=== PATIENT | female | born 1975 | race Two or more races ===

== ENCOUNTER 2020-06-25 17:54 | Inpatient (IN) | payer OTHER ==
[~2020-06-25] VITALS: Ht 165.1 cm; Wt 78.1 kg
[~2020-06-25 17:54] MED LIST: HYDROCODON-ACE1 EA15 ORAL; IBUPROFEN600 MG ORAL; NITROFURANTOIN100 M2 ORAL; PHENAZOPYRIDIN100 MG ORAL; TRAMADOL HCL50 MG ORAL
[2020-06-25 18:18] VITALS: BP 144/86
[2020-06-25] MEDS ORDERED: Acetaminophen 500mg (ES) tab ORAL ONE (18:30)
[2020-06-25] MEDS ORDERED: Omnipaque-300 100ml vial INJ PRN ×2 (18:30→22:00)
--- NOTE | 2020-06-25 18:31 | Emergency Room Report ---
History of Present Illness General Chief Complaint: Fever Source: Patient Present Illness HPI Disclaimer: Please note that this report is being documented using [employer] technology. This can lead to erroneous entry secondary to incorrect interpretation by the dictating instrument. HPI: 44-year-old female no medical history presents with fever and left-sided abdominal pain. She states she was seen at urgent care 2 weeks ago for the same. Found to have a UTI and be anemic and was prescribed p.o. Cipro. She finished her ciprofloxacin however her symptoms have continued. She reports a fever and left upper abdominal pain and left flank pain. She denies any nausea , vomiting, diarrhea. She has having normal bowel movements. She does report urinary frequency but denies any specific dysuria. Denies sick contacts. She has never had a blood transfusion in the past. PMH: Patient denies any past medical history PSH: Reviewed Social Hx: No smoking drinking or illicit drug use Allergies: Coded Allergies: No Known Allergies (Unverified , 08/21/16) COVID-19 Screening Contact w/high risk pt: No Experienced COVID-19 symptoms?: No COVID-19 Testing performed FIELD COORDINATOR: Yes - 2 weeks ago COVID-19 Screening: Negative COVID-19 COVID-19 Testing Source: nasal Patient History Reviewed Nursing Documentation: PMH: Agreed; PSxH: Agreed Nursing Documentation-PMH Past Medical History: No History, Except For Hx Gastrointestinal Problems: Yes - APPENDECTOMY, 3 C SECTION Review of Systems All Other Systems: negative except mentioned in HPI Physical Exam Vital Signs Date Time Temp Pulse Resp B/P (MAP) Pulse Ox O2 Delivery O2 Flow Rate FiO2 06/25/20 18:11 100.6 118 20 131/84 (100) 98 Room Air Sp02 EP Interpretation: reviewed, normal General Appearance: well appearing, no apparent distress Head: normocephalic, atraumatic Eyes: bilateral eye PERRL, bilateral eye EOMI ENT: hearing grossly normal, moist mucus membranes Neck: full range of motion, supple Respiratory: lungs clear, normal breath sounds, no rhonchi, no respiratory distress, no retraction, no wheezing Cardiovascular #1: normal peripheral pulses, no murmur, tachycardia Gastrointestinal: soft, non-distended, no guarding, tenderness - Left mid abdominal tenderness noted Neurologic: alert, oriented x3, no focal defects Skin: normal color, warm/dry Medical Decision Making Diagnostic Impression: Primary Impression: UTI (urinary tract infection) Additional Impressions: Lymphadenopathy Liver lesion Splenic lesion ER Course MDM: Differential included but not limited to UTI, pyelonephritis, diverticulitis, colitis, gastritis, COVID-19 to name a few Clinical course-IV cardiac monitoring pulse oximetry, septic work-up initiated. I did order a CT scan of the abdomen pelvis. Patient recently finished a outpatient course of oral antibiotics. In the ER urinalysis was consistent with persistent infection. Patient was also febrile in the ER. CT scan did demonstrate evidence of paraesophageal lymphadenopathy with lesions within the liver and spleen. Lactate was mildly elevated. IV fluids were given. Vital signs improved in the ER. Patient will be admitted to the medical floor. I do believe she requires further work-up as this lymphadenopathy with liver and splenic lesions may be undiagnosed malignancy. She was updated on the plan. Labs - Laboratory Tests Test 06/25/20 18:45 06/25/20 18:50 06/25/20 19:50 06/25/20 22:05 White Blood Count 4.5 K/UL (4.8-10.8) L Red Blood Count 3.85 M/UL (4.20-5.40) L Hemoglobin 9.0 G/DL (12.0-16.0) L Hematocrit 28.1 % (37.0-47.0) L Mean Corpuscular Volume 73 FL (80-99) L Mean Corpuscular Hemoglobin 23.4 PG (27.0-31.0) L Mean Corpuscular Hemoglobin Concent 32.0 G/DL (32.0-36.0) Red Cell Distribution Width 14.9 % (11.6-14.8) H Platelet Count 218 K/UL (150-450) Mean Platelet Volume 6.6 FL (6.5-10.1) Neutrophils (%) (Auto) 71.2 % (45.0-75.0) Lymphocytes (%) (Auto) 13.5 % (20.0-45.0) L Monocytes (%) (Auto) 14.7 % (1.0-10.0) H Eosinophils (%) (Auto) 0.2 % (0.0-3.0) Basophils (%) (Auto) 0.5 % (0.0-2.0) Sodium Level 140 MMOL/L (136-145) Potassium Level 3.9 MMOL/L (3.5-5.1) Chloride Level 102 MMOL/L (98-107) Carbon Dioxide Level 27 MMOL/L (21-32) Anion Gap 11 mmol/L (5-15) Blood Urea Nitrogen 7 mg/dL (7-18) Creatinine 0.9 MG/DL (0.55-1.30) Estimated Glomerular Filtration Rate > 60 mL/min (>60) Glucose Level 116 MG/DL (74-106) H Lactic Acid Level 2.10 mmol/L (0.4-2.0) H 1.80 mmol/L (0.66-2.22) Calcium Level 10.0 MG/DL (8.5-10.1) Total Bilirubin 0.7 MG/DL (0.2-1.0) Aspartate Amino Transferase (AST) 17 U/L (15-37) Alanine Aminotransferase (ALT) 15 U/L (12-78) Alkaline Phosphatase 132 U/L (46-116) H Total Protein 9.0 G/DL (6.4-8.2) H Albumin 3.1 G/DL (3.4-5.0) L Globulin 5.9 g/dL Albumin/Globulin Ratio 0.5 (1.0-2.7) L Lipase 85 U/L (73-393) Urine Color Yellow Urine Appearance Slightly cloudy Urine pH 5 (4.5-8.0) Urine Specific [place] 1.020 (1.005-1.035) Urine Protein 2+ (NEGATIVE) H Urine Glucose (UA) Negative (NEGATIVE) Urine Ketones Negative (NEGATIVE) Urine Blood 5+ (NEGATIVE) H Urine Nitrite Negative (NEGATIVE) Urine Bilirubin Negative (NEGATIVE) Urine Urobilinogen Normal MG/DL (0.0-1.0) Urine Leukocyte Esterase 1+ (NEGATIVE) H Urine RBC 20-30 /HPF (0 - 2) H Urine WBC 5-10 /HPF (0 - 2) H Urine Squamous Epithelial Cells Moderate /LPF (NONE/OCC) H Urine Bacteria Moderate /HPF (NONE) H Urine HCG, Qualitative Negative (NEGATIVE) Urine Opiates Screen Negative (NEGATIVE) Urine Barbiturates Screen Negative (NEGATIVE) Phencyclidine (PCP) Screen Negative (NEGATIVE) Urine Amphetamines Screen Negative (NEGATIVE) Urine Benzodiazepines Screen Negative (NEGATIVE) Urine Cocaine Screen Negative (NEGATIVE) Urine Marijuana (THC) Screen Negative (NEGATIVE) Test 06/26/20 04:50 White Blood Count 3.8 K/UL (4.8-10.8) L Red Blood Count 3.48 M/UL (4.20-5.40) L Hemoglobin 7.8 G/DL (12.0-16.0) L Hematocrit 25.3 % (37.0-47.0) L Mean Corpuscular Volume 73 FL (80-99) L Mean Corpuscular Hemoglobin 22.4 PG (27.0-31.0) L Mean Corpuscular Hemoglobin Concent 30.8 G/DL (32.0-36.0) L Red Cell Distribution Width 14.3 % (11.6-14.8) Platelet Count 182 K/UL (150-450) Mean Platelet Volume 5.8 FL (6.5-10.1) L Neutrophils (%) (Auto) % (45.0-75.0) Lymphocytes (%) (Auto) % (20.0-45.0) Monocytes (%) (Auto) % (1.0-10.0) Eosinophils (%) (Auto) % (0.0-3.0) Basophils (%) (Auto) % (0.0-2.0) Sodium Level 142 MMOL/L (136-145) Potassium Level 3.8 MMOL/L (3.5-5.1) Chloride Level 106 MMOL/L (98-107) Carbon Dioxide Level 26 MMOL/L (21-32) Anion Gap 10 mmol/L (5-15) Blood Urea Nitrogen 4 mg/dL (7-18) L Creatinine 0.8 MG/DL (0.55-1.30) Estimated Glomerular Filtration Rate > 60 mL/min (>60) Glucose Level 108 MG/DL (74-106) H Calcium Level 8.4 MG/DL (8.5-10.1) L Total Bilirubin 0.6 MG/DL (0.2-1.0) Aspartate Amino Transferase (AST) 16 U/L (15-37) Alanine Aminotransferase (ALT) 15 U/L (12-78) Alkaline Phosphatase 99 U/L (46-116) Total Protein 7.3 G/DL (6.4-8.2) Albumin 2.4 G/DL (3.4-5.0) L Globulin 4.9 g/dL Albumin/Globulin Ratio 0.5 (1.0-2.7) L Microbiology Date/Time Source Procedure Growth Status 06/25/20 19:10 Nasopharynx SARS-CoV-2 RdRp Gene Assay - Final Complete On reevaluation: Vital signs improved Plan-patient will be admitted to the medical floor CT/MRI/US Diagnostic Results CT/MRI/US Diagnostic Results : Imaging Test Ordered: CT scan abdomen and pelvis Impression IMPRESSION: 1. Extensive subcarinal and hilar lymphadenopathy partially visualized. 2. Dedicated CT imaging of the chest and PET imaging are advised. 3. Indeterminate hepatic and splenic lesions. 4. Magnetic resonance imaging of the abdomen with gadolinium administration and dynamic imaging is advised for further assessment of the liver and the spleen. 5. Gallbladder is unremarkable. 6. Status post appendectomy. 7. No bowel obstruction. 8. Flow is demonstrated within the celiac, SMA, the renal arteries, and MARTHA. 9. Possible fibroid uterus. 10. Minimal free fluid within the pelvis posterior cul-de-sac. Last Vital Signs Date Time Temp Pulse Resp B/P (MAP) Pulse Ox O2 Delivery O2 Flow Rate FiO2 06/25/20 18:18 118 20 Room Air 06/25/20 18:11 100.6 131/84 (100) 98 Status: improved Disposition: ADMITTED INPATIENT Condition: Serious Scripts No Active Prescriptions or Reported Meds Referrals: NOT CHOSEN JODIE/,REFERRING (PCP) Cornelio Rowan M.D. Jun 25, 2020 18:31
[2020-06-25 18:59] LABS: BASOPHILS % (AUTO) 0.5 % (0.0-2.0); EOSINOPHILS % (AUTO) 0.2 % (0.0-3.0); HEMATOCRIT 28.1 % (37.0-47.0); LYMPHOCYTES % (AUTO) 13.5 % (20.0-45.0); MEAN CORPUSCULAR VOLUME 73 FL (80-99); MONOCYTES % (AUTO) 14.7 % (1.0-10.0); NEUTROPHILS % (AUTO) 71.2 % (45.0-75.0); PLATELET COUNT 218 K/UL (150-450); RED BLOOD COUNT 3.85 M/UL (4.20-5.40); RED CELL DISTRIBUTION WIDTH 14.9 % (11.6-14.8); WHITE BLOOD COUNT 4.5 K/UL (4.8-10.8)
[2020-06-25 19:06] LABS: ANION GAP 11 mmol/L (5-15); BLOOD UREA NITROGEN 7 mg/dL (7-18); CARBON DIOXIDE 27 MMOL/L (21-32); CHLORIDE 102 MMOL/L (98-107); CREATININE 0.9 MG/DL (0.55-1.30); POTASSIUM 3.9 MMOL/L (3.5-5.1); SODIUM 140 MMOL/L (136-145)
[2020-06-25 19:06] LABS: APPEARANCE,URINE SLIGHTLY CLOUDY; BILIRUBIN, URINE NEGATIVE (NEGATIVE); GLUCOSE, URINE (UA) NEGATIVE (NEGATIVE); KETONES,URINE NEGATIVE (NEGATIVE); LEUKOCYTE ESTERASE ,URINE 1+ (NEGATIVE); NITRITE,URINE NEGATIVE (NEGATIVE); PH,URINE 5 (4.5-8.0); PROTEIN,URINE 2+ (NEGATIVE); UROBILINOGEN,URINE NORMAL MG/DL (0.0-1.0)
[2020-06-25 19:07] LABS: COLOR,URINE YELLOW
[2020-06-25 19:10] LABS: ALANINE AMINOTRANSFERASE 15 U/L (12-78); ALBUMIN 3.1 G/DL (3.4-5.0); ALBUMIN/GLOBULIN RATIO 0.5 (1.0-2.7); ALKALINE PHOSPHATASE 132 U/L (46-116); ASPARTATE AMINO TRANSFERASE 17 U/L (15-37); BILIRUBIN,TOTAL 0.7 MG/DL (0.2-1.0)
[2020-06-25] MEDS ORDERED: cefTRIAXone 1 GM in NS 55 ML IVPB ONE (19:30)
[2020-06-25 20:05] VITALS: BP 135/80
--- NOTE | 2020-06-25 20:17 | Diagnostic Imaging Report ---
EXAM: CT Abdomen and Pelvis With Intravenous Contrast CLINICAL HISTORY: Left-sided abdominal pain. TECHNIQUE: Axial computed tomography images of the abdomen and pelvis with intravenous contrast. CTDI is 6.4 mGy and DLP is 351.9 mGy-cm. One or more of the following dose reduction techniques were used: automated exposure control, adjustment of the mA and/or kV according to patient size, use of iterative reconstruction technique. COMPARISON: 08/25/2016. FINDINGS: Lung bases: Minimal scarring and subsegmental atelectasis at the lung bases, left greater than right. Pleural space: No pleural effusions. Mediastinum: Probable slow esophagitis. ABDOMEN: Liver: Diffuse fatty infiltration of the liver is noted with fatty sparing about the round ligament. There is a 2 x 2.1 cm indeterminate hypodense lesion right lobe of liver near the dome of the liver. There is a 0.3 cm hypodense lesion anterior segment of the right lobe of liver near the dome of the liver. There is a second 0.4 cm hypodense lesion right lobe of the liver near the dome of the liver of uncertain etiology. The liver and the spleen are normal in contour. Gallbladder and bile ducts: See below. Pancreas: The head, body, tail of the pancreas and the gallbladder are unremarkable. No ductal dilation. Spleen: Coarse calcification within the spleen suggestive of previous granulomatous disease. There is a 4 x 4.5 x 3.3 cm ill-defined hypodensity within the posterior medial aspect of the spleen best seen on coronal image 32 of uncertain etiology. Adrenals: 0.8 cm probable left adrenal adenoma. No follow-up is advised. Right adrenal gland is unremarkable. Kidneys and ureters: Unremarkable. No solid mass. No hydronephrosis. Stomach and bowel: Moderate quantity of stool throughout the colon. No evidence of bowel obstruction. No mucosal thickening. PELVIS: Appendix: Status post appendectomy. Bladder: The bladder is grossly unremarkable. Reproductive: The uterus is somewhat bulbous in appearance. ABDOMEN and PELVIS: Intraperitoneal space: Minimal simple free fluid within the pelvis. Pelvic fluid bolus. No free air. Bones/joints: Alignment of the thoracolumbar spine is unremarkable. No spondylolysis or spondylolisthesis. Sacrum and coccyx are unremarkable. No acute fracture. Soft tissues: Unremarkable. Vasculature: Unremarkable. No abdominal aortic aneurysm. Lymph nodes: There is extensive subcarinal and hilar lymphadenopathy partially visualized. In particular, there is 6.4 x 3.1 cm subcarinal lymphadenopathy. Enlarged distal periesophageal lymph nodes are noted largest of which measures 2 x 1.8 x 1.4 cm. IMPRESSION: 1. Extensive subcarinal and hilar lymphadenopathy partially visualized. 2. Dedicated CT imaging of the chest and PET imaging are advised. 3. Indeterminate hepatic and splenic lesions. 4. Magnetic resonance imaging of the abdomen with gadolinium administration and dynamic imaging is advised for further assessment of the liver and the spleen. 5. Gallbladder is unremarkable. 6. Status post appendectomy. 7. No bowel obstruction. 8. Flow is demonstrated within the celiac, SMA, the renal arteries, and MARTHA. 9. Possible fibroid uterus. 10. Minimal free fluid within the pelvis posterior cul-de-sac.
[2020-06-25 22:00] VITALS: BP 128/81
[2020-06-25] MEDS ORDERED: Milk of Magnesia 30ml Ud ORAL PRN (22:00)
[2020-06-25] MEDS: 1/2NS w/KCl 20mEq 1000ml 1,000 ML IV SCH (22:53)
[2020-06-26] VITALS: BP 112/72
[2020-06-26 04:50] VITALS: BP 115/77
[2020-06-26 06:20] LABS: HEMATOCRIT 25.3 % (37.0-47.0); HEMOGLOBIN 7.8 G/DL (12.0-16.0); MEAN CORPUSCULAR VOLUME 73 FL (80-99); PLATELET COUNT 182 K/UL (150-450); RED BLOOD COUNT 3.48 M/UL (4.20-5.40); RED CELL DISTRIBUTION WIDTH 14.3 % (11.6-14.8); WHITE BLOOD COUNT 3.8 K/UL (4.8-10.8)
[2020-06-26 07:05] LABS: ALANINE AMINOTRANSFERASE 15 U/L (12-78); ALBUMIN 2.4 G/DL (3.4-5.0); ALBUMIN/GLOBULIN RATIO 0.5 (1.0-2.7); ALKALINE PHOSPHATASE 99 U/L (46-116); ANION GAP 10 mmol/L (5-15); ASPARTATE AMINO TRANSFERASE 16 U/L (15-37); BILIRUBIN,TOTAL 0.6 MG/DL (0.2-1.0); BLOOD UREA NITROGEN 4 mg/dL (7-18); CALCIUM 8.4 MG/DL (8.5-10.1); CARBON DIOXIDE 26 MMOL/L (21-32); CHLORIDE 106 MMOL/L (98-107); CREATININE 0.8 MG/DL (0.55-1.30); POTASSIUM 3.8 MMOL/L (3.5-5.1); SODIUM 142 MMOL/L (136-145)
[2020-06-26 08:00] VITALS: BP 115/74
[2020-06-26] MEDS: Heparin 5000 units/ml inj SUBQ SCH ×2 (08:34→21:42)
[2020-06-26] MEDS: 1/2NS w/KCl 20mEq 1000ml 1,000 ML IV SCH ×2 (08:38→21:41)
[2020-06-26 12:00] VITALS: BP 121/81
[2020-06-26 16:00] VITALS: BP 110/71
--- NOTE | 2020-06-26 18:28 | History and Physical Report ---
DATE OF ADMISSION: 06/25/2020 CHIEF COMPLAINT AND REASON FOR HOSPITALIZATION: She was admitted with left lower quadrant pain, questionable UTI, lymphadenopathy. HISTORY OF PRESENT ILLNESS: The patient is a 44-year-old lady who was generally healthy. She apparently was treated for UTI about 2 weeks ago with Cipro, found to be anemic as well, completed her Cipro. She presents with a low-grade fever and left-sided abdominal pain, questionable flank pain. No hematuria but somewhat dark urine. No history of kidney stones. No history of TB or malignancy. She is having irregular menstrual periods. She had menstrual bleeding from 06/02/2020 to 06/10/2020 and again 06/16/2020. She is 3, para 3. HABITS: She is a nondrinker and nonsmoker. No use of illicit drugs. PAST SURGICAL HISTORY: None. SYSTEM REVIEW: HEAD, EYES, EARS, NOSE, AND THROAT: Vision and hearing is good. ENDOCRINE: No diabetes or thyroid disease. PULMONARY: No asthma, TB, chronic cough. CARDIAC: No angina, [place], palpitations. GASTROINTESTINAL: No vomiting or diarrhea. Chronic constipation. GENITOURINARY: See above. NEUROLOGIC: No CVA, syncope, or seizures. PHYSICAL EXAMINATION: GENERAL: The patient is a well-developed lady in no acute distress. VITAL SIGNS: Temperature 99.9, pulse 98, respiratory rate 20, blood pressure 115/74. HEAD, EYES, EARS, NOSE, AND THROAT: Sclerae nonicteric. Ocular motions intact in all directions. Oral mucosa moist. NECK: No adenopathy or thyroid enlargement. LUNGS: Clear. HEART: Regular rhythm. No murmur. ABDOMEN: Soft without organomegaly or tenderness. BREASTS: No masses. Axilla and supraclavicular area, no masses. EXTREMITIES: No edema, cyanosis, or clubbing. NEUROLOGIC: She is alert and oriented. Cranial nerves are intact. PERTINENT LABORATORY DATA: UA shows 20 to 30 red cells and 5 to 10 white cells per high-power field. White count 3.8, hemoglobin 7.8, MCV 73. Electrolytes normal, glucose 116 and 108. Lactic acid 2.10 and 1.8. Alkaline phosphatase 132 and 99. AST and ALT are normal. Lipase 65. Imaging was done including CT scan of the abdomen and pelvis which was significant for extensive subcarinal and hilar lymphadenopathy partially visualized, indeterminate hepatic and splenic lesions, possible fibroid uterus, minimal free fluid within the posterior cul-de-sac. IMPRESSION: 1. Abdominal pain, possible UTI but possibly due to pelvic pain, possibly related to the fibroids and irregular menses. 2. Lymphadenopathy, etiology unclear. CT of the chest has been ordered for further confirmation and diagnostic studies. There is no history of TB or malignancy. PLAN: Await imaging. She was started on empiric antibiotics until cultures return and observe her response. Xavier Lewis M.D. DR: Danny JOB#: [id number] CC:
[2020-06-26 20:00] VITALS: BP 111/76
--- NOTE | 2020-06-26 22:01 | Consultation ---
Kari Ingram INTERLACER 06/26/202200: History of Present Illness General Date patient seen: Jun 26, 2020 Time patient seen: 15:00 Chief Complaint: Fever Referring physician: Dr Lewis Reason for Consultation: lymphadenopathy Present Illness HPI 44-year-old lady female with PMH of recurrent UTI, s/p C section x 3, appendectomy, was treated for UTI about 2 weeks ago with Cipro, completed her Cipro. She was found to be anemic. She presented with a low-grade fever and left-sided abdominal pain, not quite flank pain. She reported discomfort on urination and generalized feeling of not well. She denied hematuria but reported dark urine. No history of kidney stones. She denied SOB, CP, cough, congestion, hemoptysis. No history of TB or malignancy. Non-smoker. She reported having irregular menstrual periods. CT scan A/P revealed extensive subcarinal and hilar lymphadenopathy . It also showed liver lesions. Possible fibroid uterus. Laboratory workup revealed anemia and leukopenia. Lactic acid 2.1 Stable LFT and lipase. UA with pyuria and moderate bacteria. +2 protein, +5 blood. Urine tox screen negative. Urine test negative. Pulmo consult was requested to assist in additional workup of this patient for extensive lymphadenopathy Allergies: Coded Allergies: No Known Allergies (Unverified , 08/21/16) Medication History No Active Prescriptions or Reported Meds Patient History Healthcare decision maker Resuscitation status Advanced Directive on File Physical Exam General Appearance: WD/WN, no apparent distress Lines, tubes and drains: peripheral HEENT: normocephalic, atraumatic, anicteric, mucous membranes moist Neck: non-tender, supple Respiratory/Chest: chest wall non-tender, lungs clear, no respiratory distress , no accessory muscle use Cardiovascular/Chest: normal peripheral pulses, normal rate Abdomen: normal bowel sounds, non tender, soft Extremities: normal range of motion, non-tender, no calf tenderness, normal capillary refill Skin Exam: normal pigmentation, warm/dry Neurologic: community mental health social worker II-XII grossly normal, alert, oriented x 3, responsive Musculoskeletal: normal muscle bulk Last 24 Hour Vital Signs Date Time Temp Pulse Resp B/P (MAP) Pulse Ox O2 Delivery O2 Flow Rate FiO2 06/26/20 20:00 99.9 109 20 111/76 (88) 100 06/26/20 16:00 99.8 107 18 110/71 (84) 98 06/26/20 12:00 102.7 117 20 121/81 (94) 98 06/26/20 09:00 Room Air 06/26/20 08:00 99.9 98 20 115/74 (88) 98 06/26/20 04:50 99.1 100 18 115/77 (90) 98 06/26/20 00:00 98.7 96 18 112/72 (85) 96 06/25/20 22:30 Room Air Intake and Output 06/25/20 06/26/20 19:00 07:00 Intake Total 3155 ml Balance 3155 ml Intake IV Total 3155 ml # Voids 1 Laboratory Tests Test 06/25/20 22:05 06/26/20 04:50 Urine Opiates Screen Negative (NEGATIVE) Urine Barbiturates Screen Negative (NEGATIVE) Phencyclidine (PCP) Screen Negative (NEGATIVE) Urine Amphetamines Screen Negative (NEGATIVE) Urine Benzodiazepines Screen Negative (NEGATIVE) Urine Cocaine Screen Negative (NEGATIVE) Urine Marijuana (THC) Screen Negative (NEGATIVE) White Blood Count 3.8 K/UL (4.8-10.8) L Red Blood Count 3.48 M/UL (4.20-5.40) L Hemoglobin 7.8 G/DL (12.0-16.0) L Hematocrit 25.3 % (37.0-47.0) L Mean Corpuscular Volume 73 FL (80-99) L Mean Corpuscular Hemoglobin 22.4 PG (27.0-31.0) L Mean Corpuscular Hemoglobin Concent 30.8 G/DL (32.0-36.0) L Red Cell Distribution Width 14.3 % (11.6-14.8) Platelet Count 182 K/UL (150-450) Mean Platelet Volume 5.8 FL (6.5-10.1) L Neutrophils (%) (Auto) % (45.0-75.0) Lymphocytes (%) (Auto) % (20.0-45.0) Monocytes (%) (Auto) % (1.0-10.0) Eosinophils (%) (Auto) % (0.0-3.0) Basophils (%) (Auto) % (0.0-2.0) Sodium Level 142 MMOL/L (136-145) Potassium Level 3.8 MMOL/L (3.5-5.1) Chloride Level 106 MMOL/L (98-107) Carbon Dioxide Level 26 MMOL/L (21-32) Anion Gap 10 mmol/L (5-15) Blood Urea Nitrogen 4 mg/dL (7-18) L Creatinine 0.8 MG/DL (0.55-1.30) Estimat Glomerular Filtration Rate > 60 mL/min (>60) Glucose Level 108 MG/DL (74-106) H Calcium Level 8.4 MG/DL (8.5-10.1) L Total Bilirubin 0.6 MG/DL (0.2-1.0) Aspartate Amino Transf (AST/SGOT) 16 U/L (15-37) Alanine Aminotransferase (ALT/SGPT) 15 U/L (12-78) Alkaline Phosphatase 99 U/L (46-116) Total Protein 7.3 G/DL (6.4-8.2) Albumin 2.4 G/DL (3.4-5.0) L Globulin 4.9 g/dL Albumin/Globulin Ratio 0.5 (1.0-2.7) L Height (Feet): 5 Height (Inches): 5.00 Weight (Pounds): 171 Medications Current Medications Medications (Trade) Dose Ordered Sig/Caron Route PRN Reason Start Time Stop Time Status Last Admin Dose Admin Acetaminophen (Tylenol) 650 mg Q4H PRN ORAL Mild Pain (Pain Scale 1-3) 06/25/20 22:00 07/25/20 21:59 06/26/20 01:59 Acetaminophen (Tylenol) 650 mg Q4H PRN ORAL Temp >100.5 06/25/20 22:00 07/25/20 21:59 06/26/20 21:50 Ciprofloxacin 200 ml @ 200 mls/hr Q12H IV 06/25/20 23:00 07/02/20 22:59 06/26/20 11:00 Dextrose (Dextrose 50%) 25 ml Q30M PRN IV Hypoglycemia 06/25/20 22:00 09/23/20 21:59 Dextrose (Dextrose 50%) 50 ml Q30M PRN IV Hypoglycemia 06/25/20 22:00 09/23/20 21:59 Heparin Sodium (Porcine) (Heparin 5000 units/ml) 5,000 units EVERY 12 HOURS SUBQ 06/26/20 09:00 08/10/20 08:59 06/26/20 21:42 Iohexol (OMNIPAQUE-300 100ml) 100 ml NOW PRN INJ Radiology Procedure 06/25/20 18:30 06/27/20 18:26 Iohexol (OMNIPAQUE-300 100ml) 100 ml ONCE PRN INJ RADIOLOGY 06/25/20 22:00 06/27/20 21:59 Magnesium Hydroxide (Mom) 30 ml HSPRN PRN ORAL Constipation 06/25/20 22:00 07/25/20 21:59 Ondansetron HCl (Zofran) 4 mg Q6H PRN IVP Nausea & Vomiting 06/25/20 22:00 07/25/20 21:59 Sodium 1,000 ml @ 100 mls/hr Q10H IV 06/25/20 23:00 07/25/20 22:59 06/26/20 21:41 Assessment/Plan Assessment/Plan: ASSESSMENT 1. Extensive subcarinal and hilar lymphadenopathy . 2. UTI 3. Liver lesions 4. Anemia 5. Probably fibroid uterus PLAN OF CARE MS floor CT chest for further evaluation IVF empiric abx, fup with UCX monitor HH with goal to keep Hgb > 7, transfuse prn pain management supportive care thank you for a consult Note; time of this note does not reflect the actual time patient was seen. [facility] was down case discussed and evaluated by supervising physician Alejandro Singh MD 06/27/20 1258: History of Present Illness General Chief Complaint: Fever Present Illness Allergies: Coded Allergies: No Known Allergies (Unverified , 08/21/16) Medication History No Active Prescriptions or Reported Meds Assessment/Plan Assessment/Plan: Patient seen and examined with INTERLACER. Agree with above A&P as it reflects our joint deliberations. Kari Ingram NP Jun 26, 2020 22:01 Alejandro Singh MD Jun 27, 2020 12:58
[2020-06-27] VITALS: BP 110/77
[2020-06-27 04:00] VITALS: BP 107/72
[2020-06-27] MEDS: 1/2NS w/KCl 20mEq 1000ml 1,000 ML IV SCH ×2 (05:25→15:00)
[2020-06-27 08:00] VITALS: BP 109/74
[2020-06-27] MEDS: Heparin 5000 units/ml inj SUBQ SCH (08:21)
--- NOTE | 2020-06-27 10:14 | Pulmonology Progress Note ---
Kari Ingram COLLEGE COACH 06/27/20 1014: Subjective Allergies: Coded Allergies: No Known Allergies (Unverified , 08/21/16) Subjective fever this am 102 denies CP, SOB no abd or flank pain denies recent weight loss UCX only 50-60 L GPC no labs done this am Objective Last 24 Hour Vital Signs Date Time Temp Pulse Resp B/P (MAP) Pulse Ox O2 Delivery O2 Flow Rate FiO2 06/27/20 09:00 Room Air 06/27/20 08:55 102.0 06/27/20 08:00 102.7 123 22 109/74 (86) 96 06/27/20 04:00 98.3 91 18 107/72 (84) 98 06/27/20 00:00 100.2 110 20 110/77 (88) 97 06/26/20 21:00 Room Air 06/26/20 20:00 99.9 109 20 111/76 (88) 100 06/26/20 16:00 99.8 107 18 110/71 (84) 98 06/26/20 12:00 102.7 117 20 121/81 (94) 98 Intake and Output 06/26/20 06/27/20 19:00 07:00 Intake Total 1590 ml Balance 1590 ml Intake Oral 590 ml IV Total 1000 ml # Voids 3 2 Objective General Appearance: WD/WN, no apparent distress Lines, tubes and drains: peripheral HEENT: normocephalic, atraumatic, anicteric, mucous membranes moist Neck: non-tender, supple Respiratory/Chest: chest wall non-tender, lungs clear, no respiratory distress , no accessory muscle use Cardiovascular/Chest: normal peripheral pulses, normal rate Abdomen: normal bowel sounds, non tender, soft Extremities: normal range of motion, non-tender, no calf tenderness, normal capillary refill Skin Exam: normal pigmentation, warm/dry Neurologic: analytics architect II-XII grossly normal, alert, oriented x 3, responsive Musculoskeletal: normal muscle bulk Microbiology Date/Time Source Procedure Growth Status 06/25/20 19:10 Nasopharynx SARS-CoV-2 RdRp Gene Assay - Final Complete 06/25/20 18:50 Urine,Clean Catch Urine Culture - Preliminary Gram Positive Cocci Resulted Current Medications Medications (Trade) Dose Ordered Sig/Caron Route PRN Reason Start Time Stop Time Status Last Admin Dose Admin Acetaminophen (Tylenol) 650 mg Q4H PRN ORAL Mild Pain (Pain Scale 1-3) 06/25/20 22:00 07/25/20 21:59 06/26/20 01:59 Acetaminophen (Tylenol) 650 mg Q4H PRN ORAL Temp >100.5 06/25/20 22:00 07/25/20 21:59 06/27/20 08:25 Ciprofloxacin 200 ml @ 200 mls/hr Q12H IV 06/25/20 23:00 07/02/20 22:59 06/26/20 23:56 Dextrose (Dextrose 50%) 25 ml Q30M PRN IV Hypoglycemia 06/25/20 22:00 09/23/20 21:59 Dextrose (Dextrose 50%) 50 ml Q30M PRN IV Hypoglycemia 06/25/20 22:00 09/23/20 21:59 Heparin Sodium (Porcine) (Heparin 5000 units/ml) 5,000 units EVERY 12 HOURS SUBQ 06/26/20 09:00 08/10/20 08:59 06/27/20 08:21 Iohexol (OMNIPAQUE-300 100ml) 100 ml NOW PRN INJ Radiology Procedure 06/25/20 18:30 06/27/20 18:26 Iohexol (OMNIPAQUE-300 100ml) 100 ml ONCE PRN INJ RADIOLOGY 06/25/20 22:00 06/27/20 21:59 Magnesium Hydroxide (Mom) 30 ml HSPRN PRN ORAL Constipation 06/25/20 22:00 07/25/20 21:59 Ondansetron HCl (Zofran) 4 mg Q6H PRN IVP Nausea & Vomiting 06/25/20 22:00 07/25/20 21:59 Sodium 1,000 ml @ 100 mls/hr Q10H IV 06/25/20 23:00 07/25/20 22:59 06/27/20 05:25 Assessment/Plan Assessment/Plan ASSESSMENT 1. Extensive subcarinal and hilar lymphadenopathy . 2. UTI 3. Liver lesions 4. Anemia 5. Probably fibroid uterus PLAN OF CARE MS floor CT chest for further evaluation, done result and imaging not uploaded yet IVF empiric abx, UCX+ GPC 50-60K monitor HH with goal to keep Hgb > 7, transfuse prn, CBC today consider MRI abdomen to eval liver lesions pain management supportive care thank you for a consult case discussed and evaluated by supervising physician Alejandro Singh MD 06/27/20 1300: Subjective Allergies: Coded Allergies: No Known Allergies (Unverified , 08/21/16) Assessment/Plan Assessment/Plan Patient seen and examined with COLLEGE COACH. Agree with above A&P as it reflects our joint deliberations. CT concerning for LYMPHOMA, R PT masslike LAD and diffuse hilar and med LAD. Will d/w radiology but can consider CTGBx vs MED vs EBUS Kari Ingram NP Jun 27, 2020 10:14 Alejandro Singh MD Jun 27, 2020 13:00
[2020-06-27 10:50] LABS: BASOPHILS % (AUTO) 0.7 % (0.0-2.0); EOSINOPHILS % (AUTO) 0.1 % (0.0-3.0); HEMATOCRIT 25.8 % (37.0-47.0); HEMOGLOBIN 8.1 G/DL (12.0-16.0); MEAN CORPUSCULAR VOLUME 72 FL (80-99); MONOCYTES % (AUTO) 17.4 % (1.0-10.0); NEUTROPHILS % (AUTO) 70.8 % (45.0-75.0); PLATELET COUNT 182 K/UL (150-450); RED BLOOD COUNT 3.58 M/UL (4.20-5.40)
[2020-06-27 10:58] LABS: ANION GAP 12 mmol/L (5-15); BLOOD UREA NITROGEN 6 mg/dL (7-18); CALCIUM 9.2 MG/DL (8.5-10.1); CARBON DIOXIDE 26 MMOL/L (21-32); CHLORIDE 101 MMOL/L (98-107); POTASSIUM 3.4 MMOL/L (3.5-5.1); SODIUM 139 MMOL/L (136-145)
[2020-06-27 11:12] LABS: % IRON SATURATION 5 % (15-50); IRON 11 ug/dL (50-175); TOTAL IRON BINDING CAPACITY 237 ug/dL (250-450)
[2020-06-27 11:24] LABS: FERRITIN 311 NG/ML (8-388)
[2020-06-27 12:00] VITALS: BP 105/72
[2020-06-27] MEDS ORDERED: ACETAMINOPHEN325 M1 ORAL (13:55)
[2020-06-27] MEDS ORDERED: Tubing IV Secondary IV ONE (15:13)
[2020-06-27] MEDS ORDERED: 1/2 NS 1000ml IV ONE (15:13)
[2020-06-27 16:00] VITALS: BP 119/75
--- NOTE | 2020-06-27 16:44 | Diagnostic Imaging Report ---
Clinical Indication: Chest pain, evaluation of abnormality described on recent abdomen CT scanner Technique: IV administration nonionic contrast. Spiral acquisition obtained through the chest. Multiplanar reconstructions generated. Total dose length product 21 mGycm. CTDIvol(s) 2, 86, 6 mGy. Dose reduction achieved using automated exposure control Comparison: No comparison chest CTs. Reference made to abdomen pelvis CT 06/25/2020 Findings: There is extensive hilar and mediastinal lymphadenopathy. Lymphadenopathy is confluent, making individual nodes difficult to measure. Paratracheal lymphadenopathy measures at least 6.5 x 5.6 orthogonal long axial dimensions by 6.7 cm craniocaudad. Enlarged nodes are seen in the aortopulmonary window and prevascular space. A few prominent supraclavicular nodes are seen on the left. The included upper abdomen demonstrates some peripancreatic, para-aortic and lesser sac lymphadenopathy, which is much less less striking than the thoracic abnormalities. The superior vena cava is displaced but only mildly narrowed. The proximal airways do not demonstrate significant narrowing related to the masses. The lungs demonstrate posterior basilar dependent atelectatic changes. A calcified granuloma is seen in the left upper lobe. No parenchymal masses or nodules, infiltrates, effusions, or congestion are demonstrated. The heart size is normal. No pericardial effusion. The thyroid is unremarkable. No axillary or chest wall mass or adenopathy. The bones are unremarkable. Included upper abdominal anatomy demonstrates multiple splenic low-attenuation areas. These are more numerous than demonstrated on previous day's CT scan. A calcified granuloma is seen within the spleen. The liver is diffusely hypoattenuating. Multiple low-attenuation lesions are seen within the liver, better appreciated on the previous day's abdomen pelvis CT. The liver is hypoattenuating, more strikingly so than on the prior study, could indicate hepatic fatty change Impression: Extensive and massive mediastinal lymphadenopathy. Most likely neoplastic, given absence of pulmonary parenchymal changes to suggest thoracic inflammatory disease. Favor primary lymphoproliferative disorder over metastatic neoplasm, given relative lack of mass effect on the mediastinal structures, but the latter is certainly possible. Evidence of upper abdominal lymphadenopathy, also described on previous day's abdomen pelvis CT scan, likely related Splenic lesions, also possibly related. Hepatic masses, also previously described. No no significant pulmonary parenchymal disease. 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
[2020-06-27] MEDS ORDERED: Iron Sucrose 100 MG in NS 55 ML IV SCH (21:00)
--- NOTE | 2020-06-28 05:14 | Discharge Summary ---
DATE OF ADMISSION: 06/25/2020 DATE OF DISCHARGE: 06/27/2020 HISTORY OF PRESENT ILLNESS: The patient is a 44-year-old lady who presents with a history of prior UTI, low-grade fever, vague left-sided abdominal pain. PERTINENT PHYSICAL FINDINGS: GENERAL: The patient is alert and oriented. HEAD, EYES, EARS, NOSE, AND THROAT: Unremarkable. LUNGS: Clear. HEART: Regular rhythm. ABDOMEN: Soft without organomegaly. BREASTS: No masses. EXTREMITIES: No edema. NEUROLOGIC: Negative. COURSE IN THE HOSPITAL: The patient was started on empiric antibiotics for fever. Cultures were negative. COVID rapid test is negative. She did have 50,000 to 60,000 gram-positive cocci in the urine, which is not considered positive. Imaging, however, was very abnormal with large amount of lymphadenopathy, subcarinal and hilar, indeterminate hepatic and splenic lesions, concerned for malignancy. The patient continued to have fevers, but no distress. Review of the imaging was suggestive that this could possibly be a lymphoma or other malignancy. This was explained to the family in view of her insurance status and her general well being. The [employer] arranged followup in the physician's office, contacted with her insurance and the patient will be provided with copies of the hospital records and imaging. FINAL DIAGNOSES: 1. Diffuse lymphadenopathy with concern for lymphoma or other possible malignancy. 2. Fevers, likely secondary to the above. 3. Insignificant urine colonies suggesting this is not urinary tract infection. 4. Anemia, likely secondary to the above. DISCHARGE DISPOSITION: Home on a regular diet. MEDICATIONS: Only medication is Tylenol 650 q.4h. p.r.n. FOLLOWUP: Physician contacted by her insurance, which the [employer] will arrange if she is not aware of her PCP. Xavier Lewis M.D. DR: BRAYAN JOB#: [id number] CC:
--- NOTE | 2020-06-30 20:01 | CDS Physician Query ---
PLEASE COMPLETE DOCUMENT BEFORE SIGNING Dear Dr. Xavier Lewis MD Date: 06/30/2020 CDI/CDS Name: [facility] Up Clinical Documentation Statement: "44-year-old lady who was generally healthy. She apparently was treated for UTI about 2 weeks ago with Cipro, found to be anemic as well, completed her Cipro. She presents with a low-grade fever and left-sided abdominal pain, questionable flank pain. No hematuria but somewhat dark urine. " FINAL DIAGNOSES: Diffuse lymphadenopathy with concern for lymphoma or other possible malignancy. Fevers, likely secondary to the above. Insignificant urine colonies suggesting this is not urinary tract infection, Anemia, likely secondary to the above. Clinical Finding Show: VITALS (06/25): T100.6, HR118, RR20 LAB : Hematology(06/25) ; WBC 10.2, Neut% 71.2 Hematology(06/26) ; WBC 3.8, Chem(06/25) : Glucose lev.116 [ 98-107], Alk Ph 132 Medications: Acetaminophen PO (06/25-06/27), Ciprofloxacin IV (06/25-06/27) Based on the above clinical scenario and your knowledge of the patient, please indicate the most appropriate diagnosis: PHYSICIAN RESPONSE: [ x] SIRS (non-infectious) without Acute Organ Dysfunction [ ] SIRS (non-infectious) with Acute Organ Dysfunction (please specify: ) [ ] Unable to determine [ ] Other comments Condition Present on Admission: [x ] Yes [ ] No [ ]Clinically Undeterminable Please also document in your Progress Notes and/or Discharge Summary and indicate if the condition was present on admission. CHAID
--- NOTE | 2020-06-30 20:34 | CDS Physician Query ---
Clarification is required for compliance, coding accuracy, and to reflect severity of illness for this patient Dear Dr. Xavier Lewis MD Date: 06/30/2020 CDI/CDS Name: [facility]ago Up Clinical Documentation Statement: "44-year-old lady who was generally healthy. She apparently was treated for UTI about 2 weeks ago with Cipro, found to be anemic as well, completed her Cipro. She presents with a low-grade fever and left-sided abdominal pain, questionable flank pain. No hematuria but somewhat dark urine. " FINAL DIAGNOSES: Diffuse lymphadenopathy with concern for lymphoma or other possible malignancy. Fevers, likely secondary to the above. Insignificant urine colonies suggesting this is not urinary tract infection, Anemia, likely secondary to the above. Clinical Finding Show: BMI: 28.7 kg/m2 LAB (06/25 ) : Chem: Albumin 3.1 [3.4-5.0], Calcium 10.0 [ 8.5-10.1], Lymphocytes ; 608 Please select the most appropriate option: [] Protein/Calorie Malnutrition [] Mild [] Moderate [] Severe [] Other [] Unable to determine [] Not Applicable Present on Admission: [ ] Yes [] No [] Clinically Undetermined Physician signature Date Please also document in your Progress Notes and/or Discharge Summary and indicate if the condition was present on admission. MTDD
== END 2020-06-27 16:48 | disposition home or self-care (01) | DRG 841 ==
LOC: EMR 18:25 → 3E 21:24 → EDBEDREQ 21:37
DX: C81.91 Hodgkin lymphoma, unspecified, lymph nodes of head, face, and neck (principal); R65.10 Systemic inflammatory response syndrome (SIRS) of non-infectious origin without acute organ dysfunction; D25.9 Leiomyoma of uterus, unspecified; K76.89 Other specified diseases of liver; D64.9 Anemia, unspecified
CPT/HCPCS: 36415; 71260; 74177; 80048; 80053; 80307; 81003; 81025; 82728; 83540; 83550; 83605; 83615; 83690; 85025; 87086; 96361; 96365; 99285; J7030; U0002